=== PATIENT | male | born 1950 | race Caucasian/White ===

== ENCOUNTER 2024-06-15 10:11 | Emergency (ER) | payer MEDICARE, SELFPAY ==
[2024-06-15 10:20] VITALS: BP 123/71
--- NOTE | 2024-06-15 13:45 | ED.GENMED ---
History of Present Illness
General
Chief Complaint: Bowel Problem
Source: patient and spouse
Exam Limitations: none
Time Seen by Provider: 06/15/24 13:35
Nursing documentation reviewed up to this point in time: agreed with
History of Present Illness
History of Present Illness:
74 yo male with hx prostate ca treated with radiation and has been clear for 4 yrs, started Rosuvastatin 6 weeks ago, was constipated for the following 2 weeks, then had good BMs until 2 weeks ago when he became constripated again and has only had a
few small pellets of BM since. States 'I've had no pain.' States he's been eating and drinking well. Denies n/v.
Past History
Past History
ED Past Medical History: Cancer (Prostate, treated with radiation and has been clear for 4 yrs,) and Hypercholesterolemia
Social History
Tobacco: Non-smoker
Alcohol: None
Personal:
Living: with family
Review of Systems
Review of Systems
Allergies reviewed?: Yes
All Other Systems: ROS reviewed and negative except as documented in HPI and ROS
Constitutional: Denies fever or fatigue
Respiratory: Denies trouble breathing
Cardiac: Denies chest pain
ABD/GI: Reports constipated; Denies abdominal pain, nausea, vomiting, diarrhea, bloody stools, black stools or anorexia
: Reports frequency (was 'peeing a lot' recently had microscopic hematuria at PCP office, scheduled for Cystoscope next week with Urology) and other; Denies dysuria or difficulty voiding
Musculoskeletal: Reports no symptoms
Skin: Reports no symptoms
Neurological: Reports no symptoms
Phy Exam
Physical Exam
Physical Exam:
GENERAL: No acute distress. A&Ox3.
CONSTITUTIONAL: Afebrile.
EYES: clear, conjunctivae normal
ENMT: moist mucus membranes
RESPIRATORY: Regular respirations, nonlabored, lungs clear.
CARDIOVASCULAR: Regular rate and rhythm, no murmurs, no rubs.
GI: Soft, nontender, normal BS
Rectal: No stool in rectal vault.
MUSCULOSKELETAL: Moves with ease. Well perfused.
SKIN: Warm, dry, pink
PSYCH: Normal mood and affect. Well kept, interactive and appropriate
NEUROLOGIC: Awake, alert and oriented. No focal neurological deficits
Course
Orders/Labs/Results
Orders:
Orders
06/15/24 13:45
CR Abdomen - 1 View Urgent
Comment:
Reason For Exam: no BM for 2 weeks.
06/15/24 14:43
Magnesium Citrate [Citroma] 300 ml PO ONCE ONE
Vital Signs
Initial and Last Documented VS:
Initial Vital Signs
Temp Pulse Resp BP Pulse Ox
97.6 F 86 16 123/71 97
06/15/24 10:20 06/15/24 10:20 06/15/24 10:20 06/15/24 10:20 06/15/24 10:20
Last Documented Vital Signs
Temp Pulse Resp BP Pulse Ox
97.6 F 85 17 120/72 99
06/15/24 10:20 06/15/24 14:53 06/15/24 14:53 06/15/24 14:53 06/15/24 14:53
MDM/Problems Addressed
MDM/Problems Addressed:
74 yo male with hx prostate ca treated with radiation and has been clear for 4 yrs, started Rosuvastatin 6 weeks ago, was constipated for the following 2 weeks, then had good BMs until 2 weeks ago when he became constripated again and has only had a
few small pellets of BM since. States 'I've had no pain.' States he's been eating and drinking well. Denies n/v.
Afebrile, NAD
Abdomen soft, benign, rectal vault empty on digital exam
Abdominal film radiology report reviewed: IMPRESSION:
Nonobstructive intestinal bowel gas pattern.
Small to moderate volume widespread colonic stool.
Pt has tried the following: prunce juice, took 2 tabs of Mag Citrate last night, took Miralax last night.
Has not been on a consistent bowel regimen so I will send him home on one.
Pt sent home with a bottle of Mag Citrate and f/u with PCP
Instruction on use of Miralax reviewed with him and .
*Critical Care Note
Total Time (30-74mins, 75-104mins- exclusive of procedures): Not Applicable
ED Attending Note
-
Portions of this chart may have been created with voice recognition software.� Occasional wrong word or��sound alike� substitutions may have occurred due to the inherent limitations of voice recognition software.
Discharge Plan
Departure
Patient Disposition: Home (Routine Discharge)
Date of Disposition: 06/15/24
Time of Disposition: 14:42
Patient with high blood pressure during this ER visit?: No
Condition: Good
Discharge Problem:
Constipation
Instructions: Polyethylene Glycol 3350, Constipation, Adult (DC)
Referrals:
Washington Chavez MD [Family Provider] - As needed
Activity Restrictions/Additional Instructions:
As we discussed, there is no sign of bowel obstruction or anything else worrisome
Your abdominal x-ray shows a small to moderate amount of stool throughout the colon
Take the entire bottle of magnesium citrate and drink at least eight 8 ounce glasses of water within the next 24 hours.
Then use daily MiraLAX as directed on the bottle until you are moving her bowels well to
Interventions
Interventions:
*Risk Screen - Suicide Last Done: 06/15/24 13:48
*General Assessment Last Done: 06/15/24 13:48
*Neglect/Abuse Screening Last Done: 06/15/24 13:48
*Nursing Disposition Last Done: 06/15/24 14:54
FM-[facility]ht[facility]-Gydkbuffzj Assessment Last Done: 06/15/24 13:48
Discharge Date and Time
Discharge Date/Time: 06/15/24 14:57
Print Language: MALAY
[2024-06-15] MEDS: CITROMA 300 ML PO (14:46)
[2024-06-15 14:53] VITALS: BP 120/72
== END 2024-06-15 14:57 | disposition home or self-care (01) ==
LOC: EMR 10:11
PROVIDERS: EMERGENCY PHYSICIAN Emergency Medicine; FAMILY PHYSICIAN Internal Medicine
DX: K59.00 Constipation, unspecified (principal); R31.29 Other microscopic hematuria; E78.00 Pure hypercholesterolemia, unspecified; Z85.46 Personal history of malignant neoplasm of prostate; Z92.3 Personal history of irradiation
CPT/HCPCS: 99283; 74018